=== PATIENT | female | born 1955 | race Caucasian/White ===

== ENCOUNTER 2021-06-08 15:00 | Emergency (ER) | payer OTHER ==
[2021-06-08 17:38] LABS: HEMOGLOBIN 14.2 gm/dl (12.3-15.3); RED BLOOD COUNT 4.91 M/UL (4.00-5.10); WHITE BLOOD COUNT 8.7 K/UL (4.5-11.0)
[2021-06-08 18:05] LABS: BUN/CREATININE RATIO 15 (0-10)
== END 2021-06-08 22:20 | disposition left against medical advice (07) ==
LOC: ER1 15:00
PROVIDERS: Nurse Practitioner
DX: R06.00 Dyspnea, unspecified (principal); E03.9 Hypothyroidism, unspecified; Z88.0 Allergy status to penicillin
CPT/HCPCS: 71045; 80048; 82550; 82553; 83874; 84484; 85025; 93005; 99283

== ENCOUNTER → 2021-06-29 | Outpatient (CLI) | payer OTHER ==
[2021-06-29 10:30] LABS: HEMOGLOBIN 14.8 gm/dl (12.3-15.3); RED BLOOD COUNT 5.07 M/UL (4.00-5.10); WHITE BLOOD COUNT 9.8 K/UL (4.5-11.0)
== END ==
LOC: RAD 09:12
PROVIDERS: Nurse Practitioner
DX: R13.10 Dysphagia, unspecified (principal)
CPT/HCPCS: 36415; 71046; 80048; 85025; 93005

== ENCOUNTER → 2021-09-04 | Outpatient (CLI) | payer OTHER ==
[2021-09-04 12:37] LABS: HEMOGLOBIN 14.5 gm/dl (12.3-15.3); WHITE BLOOD COUNT 7.1 K/UL (4.5-11.0)
== END ==
LOC: LAB 12:11
PROVIDERS: Surgery
DX: R10.9 Unspecified abdominal pain (principal)
CPT/HCPCS: 36415; 71046; 80048; 85025; 93005

== ENCOUNTER 2021-10-05 20:24 | Emergency (ER) | payer OTHER ==
[2021-10-05 22:37] LABS: HEMOGLOBIN 15.2 gm/dl (12.3-15.3); RED BLOOD COUNT 5.15 M/UL (4.00-5.10); WHITE BLOOD COUNT 15.3 K/UL (4.5-11.0)
[2021-10-06] MEDS ORDERED: BACTRIM DS TAB1 EACH PO (00:28)
[2021-10-06] MEDS ORDERED: CEPHALEXIN500 M1 PO (00:28)
== END 2021-10-06 00:48 | disposition home or self-care (01) ==
LOC: ER1 20:24
PROVIDERS: Physician Assistant
DX: L03.031 Cellulitis of right toe (principal); I12.9 Hypertensive chronic kidney disease with stage 1 through stage 4 chronic kidney disease, or unspecified chronic kidney disease; E11.22 Type 2 diabetes mellitus with diabetic chronic kidney disease; N18.9 Chronic kidney disease, unspecified; Z79.84 Long term (current) use of oral hypoglycemic drugs
CPT/HCPCS: 73630; 80053; 85025; 85652; 86140; 99283